=== PATIENT | male | born 1995 | race Caucasian/White ===

== ENCOUNTER 2019-04-12 20:45 | Emergency (ER) | payer OTHER ==
[~2019-04-12] VITALS: Ht 177.8 cm; Wt 86.4 kg
--- NOTE | 2019-04-12 21:40 | REP ---
Clinical: Left shoulder pain . Technique: Internal rotation, external rotation, and Y view. Findings: No acute fracture or dislocation. The acromioclavicular and glenohumeral joints are intact. No periarticular calcifications or degenerative changes are appreciated. Sub acromial space is normal. Surrounding soft tissues are unremarkable. Impression: Normal left shoulder radiographs. Electronically Signed by Abdelrahman Remy MD 04/12/2019 09:32 P
[2019-04-13] MEDS ORDERED: ACETAMINOPHEN 325 MG TAB PO ONE
[2019-04-13] MEDS ORDERED: NAPROXEN 250 MG TAB PO ONE
--- NOTE | 2019-04-13 00:59 | REPVR ---
PROCEDURE INFORMATION: Exam: US Duplex Left Upper Extremity Veins, Limited Exam date and time: 04/12/2019 12:37 AM Age: 24 years old Clinical indication: Pain; Other: Shoulder; Additional info: L shoulder swelling, pain TECHNIQUE: Imaging protocol: Real-time Duplex ultrasound of the Left Upper Extremity with 2-D key scale, color Doppler flow and spectral waveform analysis with image documentation. Limited exam focused on the left upper extremity veins. COMPARISON: No relevant prior studies available. FINDINGS: Left deep veins: Internal jugular, subclavian, axillary and brachial veins patent without thrombus. Normal compressibility, augmentation response and/or Doppler waveforms. Left superficial veins: Visualized cephalic and basilic veins patent without thrombus. Soft tissues: Unremarkable. IMPRESSION: No sonographic evidence of deep vein thrombosis. Electronically signed by: Brian Drew On 04/13/2019 00:59:31 AM
[2019-04-13 01:17] VITALS: BP 129/85
[2019-04-13] MEDS ORDERED: LIDO1CRE2 TOP (01:17)
[2019-04-13] MEDS ORDERED: LIDOCAINE 5% (LIDODERM) PATCH TD ONE (01:30)
[2019-04-13] MEDS ORDERED: **NOTE PATIENT COMMENT** MISC XX SCH (21:00)
== END 2019-04-13 01:47 | disposition home or self-care (01) ==
LOC: M ED 20:45
DX: S46.002A Unspecified injury of muscle(s) and tendon(s) of the rotator cuff of left shoulder, initial encounter (principal); X50.0XXA Overexertion from strenuous movement or load, initial encounter; Y93.B9 Activity, other involving muscle strengthening exercises; F17.210 Nicotine dependence, cigarettes, uncomplicated; Z91.013 Allergy to seafood